=== PATIENT | male | born 1950 | race Caucasian/White ===

== ENCOUNTER 2021-01-26 13:20 | Emergency (ER) | payer OTHER, MEDICARE ==
[2021-01-26 13:42] VITALS: BP 160/97; PULSE 79; RESP 18; TEMP 98.3
--- NOTE | 2021-01-26 13:42 | ED ---
Extremity Problem HPI - General Source: patient, RN notes reviewed Mode of arrival: ambulatory Limitations: no limitations <Max Lomas - Last Filed: 01/26/21 13:40> <Zoran Santiago - Last Filed: 01/26/21 15:51> - General Stated complaint: Rt Shoulder Pain Time Seen by Provider: 01/26/21 13:37 - History of Present Illness Initial comments: This is a 70-year-old male presents emergency Department with chief complaint of right shoulder pain. Patient states 2 days ago he was stepping off a step onto concrete block states that he fell onto his right shoulder. Patient states he's had pain and decreased range of motion. Patient denies any head injury no loss conscious denies any neck pain no other complaints. Denies any blood thinners. (Max Lomas) - Related Data Allergies Allergy/AdvReac Type Severity Reaction Status Date / Time No Known Allergies Allergy Verified 01/26/21 13:42 Review of Systems ROS Other: All systems not noted in ROS Statement are negative. <Max Lomas - Last Filed: 01/26/21 13:40> ROS Other: All systems not noted in ROS Statement are negative. <Zoran Santiago - Last Filed: 01/26/21 15:51> ROS Statement: Those systems with pertinent positive or pertinent negative responses have been documented in the HPI. General Exam General appearance: alert, in no apparent distress Head exam: Present: atraumatic, normocephalic, normal inspection Neck exam: Present: normal inspection, full ROM. Absent: tenderness, meningismus, lymphadenopathy Respiratory exam: Present: normal lung sounds bilaterally. Absent: respiratory distress, wheezes, rales, rhonchi, stridor Cardiovascular Exam: Present: regular rate, normal rhythm, normal heart sounds. Absent: systolic murmur, diastolic murmur, rubs, gallop, clicks Extremities exam: Present: other (Right shoulder decreased range of motion, minimal tenderness with palpation radial pulse palpable) <Max Lomas - Last Filed: 01/26/21 13:40> Eye exam: Present: normal appearance (glasses), PERRL, EOMI. Absent: scleral icterus, conjunctival injection, periorbital swelling GI/Abdominal exam: Present: soft, normal bowel sounds. Absent: distended, tenderness, guarding, rebound, rigid Extremities exam: Absent: full ROM (pain with external rotation, hyperextension) <Zoran Santiago - Last Filed: 01/26/21 15:51> Course Vital Signs 01/26/21 13:40 Temperature 98.3 F Pulse Rate 79 Respiratory 18 Rate Blood Pressure 160/97 O2 Sat by Pulse 96 Oximetry Medical Decision Making <Zoran Santiago - Last Filed: 01/26/21 15:51> - Medical Decision Making Discussed with , x-ray negative for fracture and dislocation, humerus negative for x-ray. No effusion noted. Patient with pain with adduction to left shoulder and hyperextension, will splint and have patient follow-up with orthopedics. Patient declines pain medication states uses homeopathic medications and CBD oil for pain. (Zoran Santiago) Disposition <Max Lomas - Last Filed: 01/26/21 13:40> Is patient prescribed a controlled substance at d/c from ED?: No Time of Disposition: 15:50 <Zoran Santiago - Last Filed: 01/26/21 15:51> Clinical Impression: Right shoulder injury Disposition: HOME SELF-CARE Condition: Good Instructions (If sedation given, give patient instructions): Fall Prevention for Older Adults (ED), Shoulder Dislocation (ED) Additional Instructions: Wear sling until seen by orthopedics. Return if numbness or increased pain. Referrals: None,Stated [REFERRING] - 1-2 days Kameron Kwon MD [STAFF PHYSICIAN] - 1-2 days
--- NOTE | 2021-01-26 15:25 | XR ---
EXAMINATION TYPE: XR humerus RT DATE OF EXAM: 01/26/2021 COMPARISON: NONE HISTORY: Pain TECHNIQUE: 2 views submitted. FINDINGS: The osseous structures are intact and the joint spaces are preserved. Use osteopenia. Arthropathy of the AC joint. IMPRESSION: 1. No acute fracture or dislocation. 2. Arthropathy AC joint. 3. Diffuse osteopenia.
--- NOTE | 2021-01-26 15:26 | XR ---
EXAMINATION TYPE: XR shoulder complete RT DATE OF EXAM: 01/26/2021 COMPARISON: NONE HISTORY: Pain TECHNIQUE: Three views are submitted. FINDINGS: The osseous structures are intact. There is no acute fracture or dislocation. AC joint arthropathy n oted. Diffuse osteopenia. IMPRESSION: 1. AC joint arthropathy.
== END 2021-01-26 16:10 | disposition home or self-care (01) ==
LOC: EC 13:20
DX: S49.91XA Unspecified injury of right shoulder and upper arm, initial encounter (principal); W19.XXXA Unspecified fall, initial encounter
CPT/HCPCS: 99283

== ENCOUNTER 2021-10-04 12:56 | Inpatient (IN) | payer OTHER, MEDICARE ==
[2021-10-04] MEDS ORDERED: SODIUM CHLORIDE 0.9% 1,000 ML IV STA (13:01)
[2021-10-04] MEDS ORDERED: DEXAMETHASONE SOD PHOSPHATE 10 MG/ML 1 ML VIAL IVP STA (13:04)
--- NOTE | 2021-10-04 13:21 | ED ---
SOB HPI - General Chief Complaint: Shortness of Breath Stated Complaint: Diff Breathing Time Seen by Provider: 10/04/21 12:58 Source: patient Mode of arrival: ambulatory Limitations: no limitations - History of Present Illness Initial Comments: Patient presents with shortness of breath. His symptoms are worse with exertion. He has no chest pain or pressure or tightness. He has no nausea or vomiting. He has a cough. He has no lightheadedness or dizziness. He wasn't doing this began. His symptoms have gotten worse for the last 4 days. He has n o pain or swelling in the arms or legs. He doesn't feel like he has palpitations. He hasn't traveled anywhere. - Related Data Home Medications Medication Instructions Recorded Confirmed No Known Home Medications 10/04/21 10/04/21 Allergies Allergy/AdvReac Type Severity Reaction Status Date / Time No Known Allergies Allergy Verified 10/04/21 14:47 Review of Systems ROS Statement: Those systems with pertinent positive or pertinent negative responses have been documented in the HPI. ROS Other: All systems not noted in ROS Statement are negative. Past Medical History Past Medical History: No Reported History History of Any Multi-Drug Resistant Organisms: None Reported Past Surgical History: No Surgical Hx Reported, Tonsillectomy Past Psychological History: No Psychological Hx Reported Smoking Status: Current every day smoker Past Alcohol Use History: Occasional Past Drug Use History: None Reported General Exam Limitations: no limitations General appearance: alert, in no apparent distress Head exam: Present: atraumatic, normocephalic, normal inspection Eye exam: Present: normal appearance, PERRL, EOMI. Absent: scleral icterus, conjunctival injection, periorbital swelling ENT exam: Present: normal exam, mucous membranes moist Neck exam: Present: normal inspection. Absent: tenderness, meningismus, lymphadenopathy Respiratory exam: Present: respiratory distress. Absent: wheezes, rales, rhonchi, stridor Cardiovascular Exam: Present: regular rate, normal rhythm, normal heart sounds. Absent: systolic murmur, diastolic murmur, rubs, gallop, clicks GI/Abdominal exam: Present: soft, normal bowel sounds. Absent: distended, tenderness, guarding, rebound, rigid Extremities exam: Present: normal inspection, full ROM, normal capillary refill. Absent: tenderness, pedal edema, joint swelling, calf tenderness Back exam: Present: normal inspection Neurological exam: Present: alert, oriented X3, CN II-XII intact Psychiatric exam: Present: normal affect, normal mood Skin exam: Present: warm, dry, intact, normal color. Absent: rash Course Vital Signs 10/04/21 10/04/21 10/04/21 13:04 13:36 14:12 Temperature 101.7 F H Pulse Rate 110 H 122 H 111 H Respiratory 32 H 28 H 22 Rate Blood Pressure 115/73 106/68 O2 Sat by Pulse 85 L 81 L 93 L Oximetry Medical Decision Making - Medical Decision Making Patient presents with shortness of breath. He is very hypoxic. He is Covid positive. He has an elevated troponin and d-dimer. I ordered IV heparin. I will consult cardiology. Patient will be admitted to the hospital. - Lab Data Result diagrams: 10/04/21 13:15 10/04/21 13:15 Lab Results 10/04/21 10/04/21 10/04/21 Range/Units 13:15 13:15 13:15 WBC 11.3 H (3.8-10.6) k/uL RBC 5.13 (4.30-5.90) m/uL Hgb 15.8 (13.0-17.5) gm/dL Hct 45.9 (39.0-53.0) % MCV 89.3 (80.0-100.0) fL MCH 30.9 (25.0-35.0) pg MCHC 34.5 (31.0-37.0) g/dL RDW 14.1 (11.5-15.5) % Plt Count 136 L (150-450) k/uL MPV 8.3 Neutrophils % 92 % Lymphocytes % 3 % Monocytes % 3 % Eosinophils % 0 % Basophils % 1 % Neutrophils # 10.3 H (1.3-7.7) k/uL Lymphocytes # 0.3 L (1.0-4.8) k/uL Monocytes # 0.4 (0-1.0) k/uL Eosinophils # 0.0 (0-0.7) k/uL Basophils # 0.1 (0-0.2) k/uL PT 10.8 (9.0-12.0) sec INR 1.0 (<1.2) APTT 26.6 (22.0-30.0) sec D-Dimer 3.98 H (<0.60) mg/L FEU Sodium 136 L (137-145) mmol/L Potassium 4.0 (3.5-5.1) mmol/L Chloride 104 (98-107) mmol/L Carbon Dioxide 19 L (22-30) mmol/L Anion Gap 13 mmol/L BUN 39 H (9-20) mg/dL Creatinine 1.83 H (0.66-1.25) mg/dL Est GFR (CKD-EPI)AfAm 41 (>60 ml/min/1.73 sqM) Est GFR (CKD-EPI)NonAf 36 (>60 ml/min/1.73 sqM) Glucose 133 H (74-99) mg/dL Plasma Lactic Acid Hector (0.7-2.0) mmol/L Calcium 8.1 L (8.4-10.2) mg/dL Magnesium 2.1 (1.6-2.3) mg/dL Total Bilirubin 0.9 (0.2-1.3) mg/dL AST 140 H (17-59) U/L ALT 54 H (4-49) U/L Alkaline Phosphatase 49 (38-126) U/L Troponin I (0.000-0.034) ng/mL Total Protein 7.0 (6.3-8.2) g/dL Albumin 3.4 L (3.5-5.0) g/dL Influenza Type A (PCR) (Not Detectd) Influenza Type B (PCR) (Not Detectd) RSV (PCR) (Not Detectd) SARS-CoV-2 (PCR) (Not Detectd) 10/04/21 10/04/21 10/04/21 Range/Units 13:15 13:15 13:24 WBC (3.8-10.6) k/uL RBC (4.30-5.90) m/uL Hgb (13.0-17.5) gm/dL Hct (39.0-53.0) % MCV (80.0-100.0) fL MCH (25.0-35.0) pg MCHC (31.0-37.0) g/dL RDW (11.5-15.5) % Plt Count (150-450) k/uL MPV Neutrophils % % Lymphocytes % % Monocytes % % Eosinophils % % Basophils % % Neutrophils # (1.3-7.7) k/uL Lymphocytes # (1.0-4.8) k/uL Monocytes # (0-1.0) k/uL Eosinophils # (0-0.7) k/uL Basophils # (0-0.2) k/uL PT (9.0-12.0) sec INR (<1.2) APTT (22.0-30.0) sec D-Dimer (<0.60) mg/L FEU Sodium (137-145) mmol/L Potassium (3.5-5.1) mmol/L Chloride (98-107) mmol/L Carbon Dioxide (22-30) mmol/L Anion Gap mmol/L BUN (9-20) mg/dL Creatinine (0.66-1.25) mg/dL Est GFR (CKD-EPI)AfAm (>60 ml/min/1.73 sqM) Est GFR (CKD-EPI)NonAf (>60 ml/min/1.73 sqM) Glucose (74-99) mg/dL Plasma Lactic Acid Hector 4.0 H* (0.7-2.0) mmol/L Calcium (8.4-10.2) mg/dL Magnesium (1.6-2.3) mg/dL Total Bilirubin (0.2-1.3) mg/dL AST (17-59) U/L ALT (4-49) U/L Alkaline Phosphatase (38-126) U/L Troponin I 0.096 H* (0.000-0.034) ng/mL Total Protein (6.3-8.2) g/dL Albumin (3.5-5.0) g/dL Influenza Type A (PCR) Not Detected (Not Detectd) Influenza Type B (PCR) Not Detected (Not Detectd) RSV (PCR) Not Detected (Not Detectd) SARS-CoV-2 (PCR) Detected A (Not Detectd) 10/04/21 13:26 Twelve-lead EKG shows ventricular rate 129 bpm, normal NV interval, normal QRS complexes, no ST elevation or depression, interpreted by me as sinus tachycardia. Critical Care Time Critical Care Time: Yes Total Critical Care Time: 35 Disposition Clinical Impression: COVID-19, NSTEMI (non-ST elevated myocardial infarction) Disposition: ADMITTED IP TO THIS HOSP Condition: Serious Is patient prescribed a controlled substance at d/c from ED?: No Referrals: [facility],Clinic [Primary Care Provider] - 1-2 days
[2021-10-04] MEDS ORDERED: ACETAMINOPHEN TAB 500 MG TAB PO STA (13:23)
[2021-10-04 13:44] LABS: Basophils # (A) 0.1 k/uL (0-0.2); Basophils % (A) 1 %; Eosinophils % (A) 0 %; HCT 45.9 % (39.0-53.0); HGB 15.8 gm/dL (13.0-17.5); Lymphocytes # (A) 0.3 k/uL (1.0-4.8); Lymphocytes % (A) 3 %; MCH 30.9 pg (25.0-35.0); MCHC 34.5 g/dL (31.0-37.0); MCV 89.3 fL (80.0-100.0); Mean Platelet Volume 8.3; Monocytes # (A) 0.4 k/uL (0-1.0); Monocytes % (A) 3 %; Neutrophils # (A) 10.3 k/uL (1.3-7.7); Neutrophils % (A) 92 %; Platelet Count 136 k/uL (150-450); RBC 5.13 m/uL (4.30-5.90); RDW 14.1 % (11.5-15.5); WBC 11.3 k/uL (3.8-10.6)
--- NOTE | 2021-10-04 13:59 | XR ---
EXAMINATION TYPE: XR chest 1V portable DATE OF EXAM: 10/04/2021 HISTORY: Shortness of breath. COMPARISON: 03/05/2013 TECHNIQUE: Single view of the chest is submitted. FINDINGS: Demonstrated are scattered senescent parenchymal change. There are coarse and groundglass infiltrates throughout both lung prado right greater than left comp atible with Covid 19 pneumonia. The heart is stable. Hilar and mediastinal structures are within normal limits. Degenerative changes are seen of the dorsal spine. IMPRESSION: 1. There are coarse and groundglass infiltrates throughout both lung prado right greater than left compatible with Covid 19 pneumonia.
[2021-10-04 14:00] LABS: Albumin 3.4 g/dL (3.5-5.0); Calcium 8.1 mg/dL (8.4-10.2); Magnesium 2.1 mg/dL (1.6-2.3); Total Bilirubin 0.9 mg/dL (0.2-1.3)
[2021-10-04 14:12] LABS: Partial Thromboplastin Time 26.6 sec (22.0-30.0); Prothrombin Time 10.8 sec (9.0-12.0)
[2021-10-04] MEDS ORDERED: HEPARIN SODIUM 1,000 UN/ML (10ML VL) IV ONE (15:12)
[2021-10-04] MEDS ORDERED: NALOXONE 0.4 MG/ML 1 ML VIAL IV PRN (15:15)
[2021-10-04] MEDS ORDERED: DOCUSATE 100 MG CAP PO PRN (15:15)
[2021-10-04] MEDS ORDERED: ACETAMINOPHEN TAB 325 MG TAB PO PRN (15:15)
[2021-10-04] MEDS ORDERED: CALCIUM CARBONATE 500 MG CHEWABLE PO PRN (15:15)
[2021-10-04] MEDS ORDERED: ONDANSETRON 4 MG/2 ML VIAL IVP PRN (15:15)
[2021-10-04] MEDS ORDERED: HEPARIN SOD,PORK IN 0.45% NACL 25,000 UNIT in 0.45% NACL 1 250ML.BAG IV SCH (15:15)
[2021-10-04] MEDS ORDERED: TEMAZEPAM 15 MG CAP PO PRN (15:15)
[2021-10-04] MEDS ORDERED: BENZOCAINE/MENTHOL LOZENG 1 EACH LOZENGE MUCOUS MEM PRN (15:15)
[2021-10-05] MEDS: ASPIRIN 81 MG PO SCH (08:43)
[2021-10-05] MEDS: METOPROLOL TARTRATE 12.5 MG TAB PO SCH ×2 (08:43→20:05)
[2021-10-05 11:17] LABS: Basophils # (A) 0.1 k/uL (0-0.2); Basophils % (A) 0 %; Eosinophils % (A) 0 %; HCT 45.1 % (39.0-53.0); HGB 15.6 gm/dL (13.0-17.5); Lymphocytes # (A) 1.1 k/uL (1.0-4.8); Lymphocytes % (A) 8 %; MCH 30.7 pg (25.0-35.0); MCHC 34.5 g/dL (31.0-37.0); Mean Platelet Volume 8.7; Monocytes # (A) 0.3 k/uL (0-1.0); Monocytes % (A) 2 %; Neutrophils % (A) 88 %; Platelet Count 161 k/uL (150-450); RBC 5.08 m/uL (4.30-5.90); RDW 14.2 % (11.5-15.5); WBC 13.6 k/uL (3.8-10.6)
[2021-10-05 11:30] VITALS: BMI 16.7
[2021-10-05 11:45] LABS: Potassium 4.2 mmol/L (3.5-5.1)
--- NOTE | 2021-10-05 11:56 | P.CRDCN ---
History of Present Illness Consult date: 10/05/21 History of present illness: CHIEF COMPLAINT: Abnormal troponins HISTORY OF PRESENT ILLNESS: This is a 71-year-old male with a past medical history significant for nicotine dependence. 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 We have been asked to see the patient in consultation for abnormal troponins. Patient presented to the hospital with a chief complaint of shortness of breath. The patient was found to be positive for Covid. Patient did not receive his vaccination. Patient was hypoxic upon presentation to the hospital with an oxygen saturation in the 80s. Patient was found to have abnormal troponins of 0.096. 0.197. 0.177. He was started on IV heparin. The patient was initially on a nonrebreather mask. He is currently on a BiPAP. The patient has no complaints of chest pain or pressure. Blood pressure 116/73. DIAGNOSTICS: EKG reveals sinus mechanism with nonspecific ST-T wave changes Chest xray course and groundglass infiltrates throughout both lung prado right greater than left compatible with COVID-19 pneumonia. Laboratory data: WBC 13.6. Hemoglobin 15.6. Platelet count 161. D-dimer 3.98. Sodium 136. Potassium 4.0. BUN 39. Creatinine 1.83. Lactic acid 1.1. BNP 999. Troponin 0.096. 0.197. 0.177. Current home cardiac medications include none REVIEW OF SYSTEMS: Thorough review of systems not completed secondary to limited evaluat ion/examination due to Covid19 PHYSICAL EXAM: Thorough physical exam not completed secondary to limited evaluation/examination due to Covid19 ASSESSMENT: Shortness of breath Covid 19 Acute hypoxic respiratory failure Abnormal troponins, not suggestive of acute coronary syndrome, likely secondary to type II [place] secondary to oxygen supply and demand mismatch due to significant hypoxia Acute kidney injury, baseline unknown, creatinine 1.83 on admission Elevated d-dimer PLAN: Begin aspirin 81 mg daily and metoprolol 12.5 mg twice a day Obtain lipid panel Discontinue IV heparin Will defer workup workup of elevated d-dimer to internal medicine if necessary Obtain 2D echo to assess cardiac structure and function Further recommendations pending patient course Nurse practitioner note has been reviewed by physician. Signing provider agrees with the documented findings, assessment, and plan of care. Past Medical History Past Medical History: No Reported History History of Any Multi-Drug Resistant Organisms: None Reported Past Surgical History: Tonsillectomy Past Anesthesia/Blood Transfusion Reactions: No Reported Reaction Past Psychological History: No Psychological Hx Reported Smoking Status: Current every day smoker Past Alcohol Use History: Occasional Past Drug Use History: None Reported Medications and Allergies Home Medications Medication Instructions Recorded Confirmed Type No Known Home Medications 10/04/21 10/04/21 History Allergies Allergy/AdvReac Type Severity Reaction Status Date / Time No Known Allergies Allergy Verified 10/04/21 14:47 Physical Exam Vitals: Vital Signs Temp Pulse Pulse Resp BP BP Pulse Ox 10/05/21 08:00 97.7 F 61 20 116/73 90 L 10/05/21 04:00 62 24 101/65 92 L 10/05/21 02:00 70 22 10/05/21 00:00 98.4 F 70 26 H 118/76 92 L 10/04/21 20:39 97.4 F L 68 31 H 114/81 90 L 10/04/21 20:00 68 10/04/21 17:27 97.7 F 74 18 107/83 95 10/04/21 14:12 111 H 22 93 L 10/04/21 13:36 122 H 28 H 106/68 81 L 10/04/21 13:04 101.7 F H 110 H 32 H 115/73 85 L Intake and Output 10/04/21 10/05/21 10/05/21 22:59 06:59 14:59 Intake Total 121.082 Balance 121.082 Intake: Intake, IV Titration 121.082 Amount Heparin Sod,Pork in 0.45% 121.082 NaCl 25,000 unit In 0.45 % NaCl 1 250ml.bag @ 11.8 UNITS/KG/HR 10.004 mls/ hr IV .Q24H [facility] Rx#: [id number] Other: Voiding Method Urinal Urinal # Voids 1 # Bowel Movements 1 Weight 51.5 kg Results 10/05/21 11:02 10/04/21 13:15 Cardiac Enzymes 10/04/21 10/04/21 10/04/21 Range/Units 13:15 13:15 15:26 AST 140 H (17-59) U/L Troponin I 0.096 H* 0.197 H* (0.000-0.034) ng/mL 10/04/21 Range/Units 19:31 AST (17-59) U/L Troponin I 0.177 H* (0.000-0.034) ng/mL Coagulation 10/04/21 10/04/21 10/05/21 Range/Units 13:15 21:54 05:42 PT 10.8 (9.0-12.0) sec APTT 26.6 76.2 H 80.5 H (22.0-30.0) sec CBC 10/04/21 Range/Units 13:15 WBC 11.3 H (3.8-10.6) k/uL RBC 5.13 (4.30-5.90) m/uL Hgb 15.8 (13.0-17.5) gm/dL Hct 45.9 (39.0-53.0) % Plt Count 136 L (150-450) k/uL Comprehensive Metabolic Panel 10/04/21 Range/Units 13:15 Sodium 136 L (137-145) mmol/L Potassium 4.0 (3.5-5.1) mmol/L Chloride 104 (98-107) mmol/L Carbon Dioxide 19 L (22-30) mmol/L BUN 39 H (9-20) mg/dL Creatinine 1.83 H (0.66-1.25) mg/dL Glucose 133 H (74-99) mg/dL Calcium 8.1 L (8.4-10.2) mg/dL AST 140 H (17-59) U/L ALT 54 H (4-49) U/L Alkaline Phosphatase 49 (38-126) U/L Total Protein 7.0 (6.3-8.2) g/dL Albumin 3.4 L (3.5-5.0) g/dL Current Medications Generic Name Dose Route Start Last Admin Trade Name Freq PRN Reason Stop Dose Admin Acetaminophen 650 mg 10/04/21 15:15 Acetaminophen Tab 325 Mg Tab PO Q6HR PRN Mild Pain or Fever > 100.5 Ascorbic Acid 500 mg 10/05/21 11:00 Ascorbic Acid 500 Mg Tab PO DAILY TALITA Aspirin 81 mg 10/05/21 09:00 10/05/21 08:43 Aspirin 81 Mg PO 81 mg DAILY TALITA Administration Benzocaine/Menthol 1 each 10/04/21 15:15 Benzocaine/Menthol Lozeng 1 Each Lozenge MUCOUS MEM Q4HR PRN Sore Throat Calcium Carbonate/Glycine 1,000 mg 10/04/21 15:15 Calcium Carbonate 500 Mg Chewable PO Q4HR PRN Dyspepsia Cholecalciferol 25 mcg 10/05/21 11:00 Cholecalciferol 25 Mcg (1000 Iu) Tablet PO DAILY [facility] Dexamethasone Sodium Phosphate 6 mg 10/05/21 11:00 Dexamethasone Sod Phosphate 10 Mg/Ml 1 Ml Vial IVP DAILY TALITA Docusate Sodium 100 mg 10/04/21 15:15 Docusate 100 Mg Cap PO BID PRN Constipation Metoprolol Tartrate 12.5 mg 10/05/21 09:00 10/05/21 08:43 Metoprolol Tartrate 12.5 Mg Tab PO 12.5 mg BID TALITA Administration Naloxone HCl 0.2 mg 10/04/21 15:15 Naloxone 0.4 Mg/Ml 1 Ml Vial IV Q2M PRN Opioid Reversal Ondansetron HCl 4 mg 10/04/21 15:15 Ondansetron 4 Mg/2 Ml Vial IVP Q8HR PRN Nausea And Vomiting Temazepam 15 mg 10/04/21 15:15 Temazepam 15 Mg Cap PO HS PRN Insomnia Zinc Sulfate 220 mg 10/05/21 11:00 Zinc Sulfate 220 Mg Cap PO DAILY [facility] Intake and Output 10/04/21 10/05/21 10/05/21 22:59 06:59 14:59 Intake Total 121.082 Balance 121.082 Intake: Intake, IV Titration 121.082 Amount Heparin Sod,Pork in 0.45% 121.082 NaCl 25,000 unit In 0.45 % NaCl 1 250ml.bag @ 11.8 UNITS/KG/HR 10.004 mls/ hr IV .Q24H [facility] Rx#: [id number] Other: Voiding Method Urinal Urinal # Voids 1 # Bowel Movements 1 Weight 51.5 kg 10/04/21 13:15 10/04/21 13:15
[2021-10-05] MEDS: ASCORBIC ACID 500 MG TAB PO SCH (12:03)
[2021-10-05] MEDS: DEXAMETHASONE SOD PHOSPHATE 10 MG/ML 1 ML VIAL IVP SCH (12:03)
[2021-10-05] MEDS: CHOLECALCIFEROL 25 MCG (1000 IU) TABLET PO SCH (12:03)
[2021-10-05] MEDS: ZINC SULFATE 220 MG CAP PO SCH (12:03)
--- NOTE | 2021-10-05 12:22 | ECHOF ---
Referral Reason:Abnormal troponins, + covid MEASUREMENTS -------- HEIGHT: 175.3 cm WEIGHT: 51.3 kg BP: 101/65 RVIDd: 3.2 cm (< 3.3) IVSd: 1.5 cm (0.6 - 1.1) LVIDd: 3.5 cm (3.9 - 5.3) LVPWd: 1.7 cm (0.6 - 1.1) IVSs: 1.6 cm LVIDs: 2.5 cm LVPWs: 2.2 cm LAESV Index (A-L): 33.85 ml/m Ao Diam: 3.6 cm (2.0 - 3.7) AV Cusp: 2.1 cm (1.5 - 2.6) MV EXCURSION: 24.054 mm (> 18.000) MV EF SLOPE: 101 mm/s (70 - 150) EPSS: 0.2 cm MV E Goyo: 0.79 m/s MV DecT: 197 ms MV A Goyo: 0.70 m/s MV E/A Ratio: 1.12 RAP: 20.00 mmHg RVSP: 45.11 mmHg FINDINGS -------- Sinus rhythm. This was a technically adequate study. The left ventricular size is normal. There is moderate concentric left ventricular hypertrophy. O verall left ventricular systolic function is normal with, an EF between 55 - 60 %. The diastolic fi lling pattern is normal for the age of the patient 12.44. The right ventricle is normal in size. LA is midly dilated 29-33ml/m2. The right atrium was not well visualized. Interatrial and interventricular septum intact. Trace amount of aortic regurgitation. There is no evidence of aortic stenosis. Mild mitral regurgitation is present. [id number] tricuspid regurgitation present. There is mild to moderate pulmonary hypertension. The right ventricular systolic pressure, as measured by Doppler, is 45.11mmHg. There is no pulmonic regurgitation present. The aortic root size is normal. The inferior vena cava is dilated with poor inspiratory collapse which is consistent with estimated r ight atrial pressure of 20 mmHg. Echo free space represents a pericardial fat pad. There is no pericardial effusion. CONCLUSIONS -------- 1. The left ventricular size is normal. 2. There is moderate concentric left ventricular hypertrophy. 3. Overall left ventricular systolic function is normal with, an EF between 55 - 60 %. 4. The diastolic filling pattern is normal for the age of the patient 12.44 5. LA is midly dilated 29-33ml/m2. 6. Trace amount of aortic regurgitation. 7. Mild mitral regurgitation is present. 8. [id number] tricuspid regurgitation present. 9. There is mild to moderate pulmonary hypertension. 10. The right ventricular systolic pressure, as measured by Doppler, is 45.11mmHg. 11. The inferior vena cava is dilated with poor inspiratory collapse which is consistent with estimat ed right atrial pressure of 20 mmHg. 12. Echo free space represents a pericardial fat pad. 13. There is no pericardial effusion. CHORUS DANCER: Frannie Carney RDCS
--- NOTE | 2021-10-05 13:02 | P.CNPUL ---
History of Present Illness Consult date: 10/05/21 Requesting physician: Saira Martinez Reason for consult: dyspnea, hypoxemia, abnormal CXR/CT Chief complaint: shortness of breath, cough, confusion History of present illness: this is a 71-year-old male patient with a history of chronic tobacco dependence otherwise no significant past medical history. Approximately 1 week ago he developed increasing shortness of breath, cough and congestion. He admitted to some confusion, weakness and diarrhea. He is not vaccinated against the COVID-19 virus and is found to be positive now. the x-ray does reveal coursing groundglass infiltrates throughout bilateral lung prado compatible with COVID- 19 pneumonia. He is currently requiring BiPAP / in the 100% FiO2 to maintain O2 saturation at 90%. white count 13.6. Hemoglobin 15.6. Platelet count 161. D-dimer 3.98. Sodium 138. Potassium 4.2. Bicarb 19. Creatinine 2.34. Glucose 118. LDH 2013. ProBNP 999. Troponins 0.096, 0.197, 0.177. proBNP 999. He was initiated on a heparin drip. Echocardiogram revealed preserved left ventricle systolic function with ejection fraction 55-60%. Moderate pulmonary hypertension. No significant valvular abnormalities. He was started on Decadron and a vitamin supplements. Review of Systems REVIEW OF SYSTEMS: CONSTITUTIONAL: Denies any recent significant weight loss or weight gain. EYES: Denies change in vision. EARS, NOSE, MOUTH, THROAT: Denies headaches, denies sore throat. CARDIOVASCULAR: Denies chest pain, palpitations or syncopal episodes. RESPIRATORY: Positive for shortness of breath, cough, congestion no hemoptysis. GASTROINTESTINAL: Positive for diarrhea GENITOURINARY: Denies hematuria, denies infections. MUSKULOSKELETAL: Denies pain, denies swelling. INTEGUMENTARY: Denies rash, denies eczema. NEUROLOGICAL: Positive for confusions, no recent seizure activity. PSYCHIATRIC: Denies anxiety, denies depression. HEMATOLOGIC/LYMPHATIC: Denies anemia, denies enlarged lymph nodes. Past Medical History Past Medical History: No Reported History History of Any Multi-Drug Resistant Organisms: None Reported Past Surgical History: Tonsillectomy Past Anesthesia/Blood Transfusion Reactions: No Reported Reaction Past Psychological History: No Psychological Hx Reported Smoking Status: Current every day smoker Past Alcohol Use History: Occasional Past Drug Use History: None Reported Medications and Allergies Home Medications Medication Instructions Recorded Confirmed Type No Known Home Medications 10/04/21 10/04/21 History Allergies Allergy/AdvReac Type Severity Reaction Status Date / Time No Known Allergies Allergy Verified 10/04/21 14:47 Physical Exam Vitals: Vital Signs Temp Pulse Pulse Resp BP BP Pulse Ox 10/05/21 08:00 97.7 F 61 20 116/73 90 L 10/05/21 04:00 62 24 101/65 92 L 10/05/21 02:00 70 22 10/05/21 00:00 98.4 F 70 26 H 118/76 92 L 10/04/21 20:39 97.4 F L 68 31 H 114/81 90 L 10/04/21 20:00 68 10/04/21 17:27 97.7 F 74 18 107/83 95 10/04/21 14:12 111 H 22 93 L 10/04/21 13:36 122 H 28 H 106/68 81 L 10/04/21 13:04 101.7 F H 110 H 32 H 115/73 85 L Intake and Output 10/04/21 10/05/21 10/05/21 22:59 06:59 14:59 Intake Total 121.082 Balance 121.082 Intake: Intake, IV Titration 121.082 Amount Heparin Sod,Pork in 0.45% 121.082 NaCl 25,000 unit In 0.45 % NaCl 1 250ml.bag @ 11.8 UNITS/KG/HR 10.004 mls/ hr IV .Q24H [facility] Rx#: [id number] Other: Voiding Method Urinal Urinal # Voids 1 # Bowel Movements 1 Weight 51.5 kg 51.5 kg GENERAL EXAM: Alert, pleasant 71-year-old gentleman, on BiPAP 12/6 and 100% FiO2 with O2 saturation 90%, and mild respiratory distress. HEAD: Normocephalic. EYES: Normal reaction of pupils, equal size. NOSE: Clear with pink turbinates. THROAT: No erythema or exudates. NECK: No masses, no JVD. CHEST: No chest wall deformity. LUNGS: Equal air entry with coarse crackles in the bilateral bases. CVS: S1 and S2 normal with no audible murmur, regular rhythm. ABDOMEN: No hepatosplenomegaly, normal bowel sounds, no guarding or rigidity. SPINE: No scoliosis or deformity SKIN: No rashes CENTRAL NERVOUS SYSTEM: No focal deficits, tone is normal in all 4 extremities. EXTREMITIES: There is no peripheral edema. No clubbing, no cyanosis. Peripheral pulses are intact. Results - Laboratory Findings CBC and BMP: 10/05/21 11:02 10/05/21 11:02 PT/INR, D-dimer PT 10.8 sec (9.0-12.0) 10/04/21 13:15 INR 1.0 (<1.2) 10/04/21 13:15 D-Dimer 3.98 mg/L FEU (<0.60) H 10/04/21 13:15 Abnormal lab findings: Abnormal Labs 10/04/21 10/04/21 10/04/21 13:15 13:15 13:15 WBC 11.3 H Plt Count 136 L Neutrophils # 10.3 H Lymphocytes # 0.3 L APTT D-Dimer 3.98 H Sodium 136 L Chloride Carbon Dioxide 19 L BUN 39 H Creatinine 1.83 H Glucose 133 H Plasma Lactic Acid Hector Calcium 8.1 L AST 140 H ALT 54 H Lactate Dehydrogenase Troponin I Albumin 3.4 L SARS-CoV-2 (PCR) 10/04/21 10/04/21 10/04/21 13:15 13:15 13:24 WBC Plt Count Neutrophils # Lymphocytes # APTT D-Dimer Sodium Chloride Carbon Dioxide BUN Creatinine Glucose Plasma Lactic Acid Hector 4.0 H* Calcium AST ALT Lactate Dehydrogenase Troponin I 0.096 H* Albumin SARS-CoV-2 (PCR) Detected A 10/04/21 10/04/21 10/04/21 15:26 19:31 21:54 WBC Plt Count Neutrophils # Lymphocytes # APTT 76.2 H D-Dimer Sodium Chloride Carbon Dioxide BUN Creatinine Glucose Plasma Lactic Acid Hector Calcium AST ALT Lactate Dehydrogenase Troponin I 0.197 H* 0.177 H* Albumin SARS-CoV-2 (PCR) 10/05/21 10/05/21 10/05/21 05:42 11:02 11:02 WBC 13.6 H Plt Count Neutrophils # 12.0 H Lymphocytes # APTT 80.5 H 56.9 H D-Dimer Sodium Chloride Carbon Dioxide BUN Creatinine Glucose Plasma Lactic Acid Hector Calcium AST ALT Lactate Dehydrogenase Troponin I Albumin SARS-CoV-2 (PCR) 10/05/21 11:02 WBC Plt Count Neutrophils # Lymphocytes # APTT D-Dimer Sodium Chloride 109 H Carbon Dioxide 19 L BUN 58 H Creatinine 2.34 H Glucose 118 H Plasma Lactic Acid Hector Calcium 8.0 L AST ALT Lactate Dehydrogenase 2013 H Troponin I Albumin SARS-CoV-2 (PCR) - Diagnostic Findings Chest x-ray: image reviewed Assessment and Plan Assessment: 1 Acute hypoxemic respiratory failure secondary to acute COVID-19 pneumonia. Not vaccinated. Currently requiring BiPAP support 10/09 and 100% FiO2 to maintain O2 saturation at 90%. We will initiate Baricitinib 2 Elevated inflammatory markers secondary to above 3 Chronic tobacco dependence 4 Elevated troponins suspect secondary to an oxygen supply and demand mismatch, on a heparin drip Plan: The patient was seen and evaluated by Dr. Tavares Initiate Baricitinib, continue Decadron and vitamin supplements Heparin drip DC'd per cardiology Add Lovenox 40 mg daily Obtain Dopplers of the lower extremities Check pro calcitonin Titrate the FiO2 as tolerated Condition is guarded Follow-up chest x-ray, inflammatory markers in the a.m. We will continue to follow and make further recommendations based on his clinical status Time with Patient: Greater than 30
[2021-10-05 13:56] LABS: C Reactive Protein 20.8 mg/dL (<1.0)
--- NOTE | 2021-10-05 14:18 | US ---
EXAMINATION TYPE: US venous doppler duplex LE DATE OF EXAM: 10/05/2021 1:53 PM COMPARISON: NONE CLINICAL HISTORY: Elevated d-dimer, CoVID. elevated labs, no h/o dvt, on Heparin SIDE PERFORMED: Bilateral TECHNIQUE: The lower extremity deep venous system is examined utilizing real time linear array sonog baljit with graded compression, doppler sonography and color-flow sonography. VESSELS IMAGED: Common Femoral Vein Deep Femoral Vein Greater Saphenous Vein * Femoral Vein Popliteal Vein Small Saphenous Vein * Proximal Calf Veins (* superficial vessels) Right Leg: Negative for DVT Left Leg: Negative for DVT IMPRESSION: Grayscale, color doppler, spectral doppler imaging performed of the deep veins of the lo wer extremities. There is normal flow, compressibility, vascular waveforms.
[2021-10-05] MEDS: ENOXAPARIN 40 MG/0.4 ML SYRINGE SQ SCH (15:40)
[2021-10-05] MEDS: BARICITINIB 1 MG TABLET PO SCH (15:42)
[2021-10-05 16:09] LABS: Chol/HDL Ratio 2.16 Ratio; LDL Cholesterol,Calculated 25.7 mg/dL (0.0-131.0); VLDL Calculation 12.76 mg/dL (5.00-40.00)
[2021-10-05] MEDS: guaiFENesin 600 MG TABLET.ER PO SCH (17:18)
[2021-10-05 20:02] LABS: Glucose,Whole Blood 132 mg/dL (75-99)
--- NOTE | 2021-10-05 22:29 | P.HPIM ---
History of Present Illness H&P Date: 10/05/21 Chief Complaint: Shortness of breath. Patient is a 71-year-old male without significant past medical history presents to ER with complaints of shortness of breath cough and congestion. Patient has been having exertional dyspnea as well. No complaints of chest pain. No nausea vomiting. He has been having symptoms for the past 4 days. Denies any recent travel or sick contacts. On admission patient was tested positive for COVID-19 infection. Chest x-ray showed there are coarsened groundglass infiltrates throughout both lung prado right greater than left compatible with COVID-19 pneumonia. EKG showed sinus tachycardia with premature supraventricular complexes. Laboratory data showed WBC 11.3 hemoglobin 15.8 and platelets 136 D-dimer is 3.98 Sodium 136 potassium 4.0 chloride 104 BUN 39 and creatinine 1.83 Lactic acid 4.0 AST 140 ALT 54 Troponin 0 0.096, 0.197 and 0.177 COVID-19 PCR positive. On admission patient was febrile with T-max 101.7 heart rate 110 respiration 32 and pulse ox 85% on 15 L oxygen via nonrebreather. Patient did require BiPAP overnight. Review of Systems Constitutional: Patient does have fever and chills at home. Generalized weakness and malaise. Abdomen: Patient denied nausea vomiting and diarrhea and abdominal pain. Cardiovascular: Patient denies any chest pain or short of breath no palpitations. Respiratory: Patient does have cough without sputum production. Shortness of breath. Neurologic: Patient denied any numbness or tingling headache. Musculoskeletal: Patient denies any complaints of joint swelling or deformity. Skin: Negative Psychiatric: Negative Endocrine: No heat or cold intolerance. No recent weight gain. Genitourinary: No dysuria or hematuria. All other 14 point ROS negative except the above Past Medical History Past Medical History: No Reported History History of Any Multi-Drug Resistant Organisms: None Reported Past Surgical History: Tonsillectomy Past Anesthesia/Blood Transfusion Reactions: No Reported Reaction Past Psychological History: No Psychological Hx Reported Smoking Status: Current every day smoker Past Alcohol Use History: Occasional Past Drug Use History: None Reported Medications and Allergies Home Medications Medication Instructions Recorded Confirmed Type No Known Home Medications 10/04/21 10/04/21 History Allergies Allergy/AdvReac Type Severity Reaction Status Date / Time No Known Allergies Allergy Verified 10/04/21 14:47 Physical Exam Vitals: Vital Signs Temp Pulse Pulse Resp BP BP Pulse Ox 10/05/21 08:00 97.7 F 61 20 116/73 90 L 10/05/21 04:00 62 24 101/65 92 L 10/05/21 02:00 70 22 10/05/21 00:00 98.4 F 70 26 H 118/76 92 L 10/04/21 20:39 97.4 F L 68 31 H 114/81 90 L 10/04/21 20:00 68 10/04/21 17:27 97.7 F 74 18 107/83 95 10/04/21 14:12 111 H 22 93 L 10/04/21 13:36 122 H 28 H 106/68 81 L 10/04/21 13:04 101.7 F H 110 H 32 H 115/73 85 L Intake and Output 10/04/21 10/05/21 10/05/21 22:59 06:59 14:59 Intake Total 121.082 Balance 121.082 Intake: Intake, IV Titration 121.082 Amount Heparin Sod,Pork in 0.45% 121.082 NaCl 25,000 unit In 0.45 % NaCl 1 250ml.bag @ 11.8 UNITS/KG/HR 10.004 mls/ hr IV .Q24H [facility] Rx#: [id number] Other: Voiding Method Urinal Urinal # Voids 1 # Bowel Movements 1 Weight 51.5 kg PHYSICAL EXAMINATION: Patient is lying in the bed comfortably, no acute distress, awake alert and oriented.. HEENT: Normocephalic. Neck is supple. Pupils reactive. Nostrils clear. Oral cavity is moist. Neck reveals no JVD, carotid bruits, or thyromegaly. CHEST EXAMINATION: Trachea is central. Symmetrical expansion. Scattered coarse sounds. Nonlabored breathing. No wheezing.. CARDIAC: Normal S1, S2 with no gallops. No murmurs ABDOMEN: Soft. Bowel sounds normal. No organomegaly. No abdominal bruits. Extremities: reveal no edema. No clubbing or cyanosis Neurologically awake, alert, oriented x3 with well-coordinated movements. No focal deficits noted Skin: No rash or skin lesions. Psychiatric: Cooperative. Nonsuicidal Musculoskeletal: No joint swelling or deformity. Normal range of motion. Results CBC & Chem 7: 10/05/21 11:02 10/05/21 11:02 Labs: Abnormal Lab Results - Last 24 Hours (Table) 10/04/21 10/04/21 10/04/21 Range/Units 13:15 13:15 13:15 WBC 11.3 H (3.8-10.6) k/uL Plt Count 136 L (150-450) k/uL Neutrophils # 10.3 H (1.3-7.7) k/uL Lymphocytes # 0.3 L (1.0-4.8) k/uL APTT (22.0-30.0) sec D-Dimer 3.98 H (<0.60) mg/L FEU Sodium 136 L (137-145) mmol/L Carbon Dioxide 19 L (22-30) mmol/L BUN 39 H (9-20) mg/dL Creatinine 1.83 H (0.66-1.25) mg/dL Glucose 133 H (74-99) mg/dL Plasma Lactic Acid Hector (0.7-2.0) mmol/L Calcium 8.1 L (8.4-10.2) mg/dL AST 140 H (17-59) U/L ALT 54 H (4-49) U/L Troponin I (0.000-0.034) ng/mL Albumin 3.4 L (3.5-5.0) g/dL SARS-CoV-2 (PCR) (Not Detectd) 10/04/21 10/04/21 10/04/21 Range/Units 13:15 13:15 13:24 WBC (3.8-10.6) k/uL Plt Count (150-450) k/uL Neutrophils # (1.3-7.7) k/uL Lymphocytes # (1.0-4.8) k/uL APTT (22.0-30.0) sec D-Dimer (<0.60) mg/L FEU Sodium (137-145) mmol/L Carbon Dioxide (22-30) mmol/L BUN (9-20) mg/dL Creatinine (0.66-1.25) mg/dL Glucose (74-99) mg/dL Plasma Lactic Acid Hector 4.0 H* (0.7-2.0) mmol/L Calcium (8.4-10.2) mg/dL AST (17-59) U/L ALT (4-49) U/L Troponin I 0.096 H* (0.000-0.034) ng/mL Albumin (3.5-5.0) g/dL SARS-CoV-2 (PCR) Detected A (Not Detectd) 10/04/21 10/04/21 10/04/21 Range/Units 15:26 19:31 21:54 WBC (3.8-10.6) k/uL Plt Count (150-450) k/uL Neutrophils # (1.3-7.7) k/uL Lymphocytes # (1.0-4.8) k/uL APTT 76.2 H (22.0-30.0) sec D-Dimer (<0.60) mg/L FEU Sodium (137-145) mmol/L Carbon Dioxide (22-30) mmol/L BUN (9-20) mg/dL Creatinine (0.66-1.25) mg/dL Glucose (74-99) mg/dL Plasma Lactic Acid Hector (0.7-2.0) mmol/L Calcium (8.4-10.2) mg/dL AST (17-59) U/L ALT (4-49) U/L Troponin I 0.197 H* 0.177 H* (0.000-0.034) ng/mL Albumin (3.5-5.0) g/dL SARS-CoV-2 (PCR) (Not Detectd) 10/05/21 Range/Units 05:42 WBC (3.8-10.6) k/uL Plt Count (150-450) k/uL Neutrophils # (1.3-7.7) k/uL Lymphocytes # (1.0-4.8) k/uL APTT 80.5 H (22.0-30.0) sec D-Dimer (<0.60) mg/L FEU Sodium (137-145) mmol/L Carbon Dioxide (22-30) mmol/L BUN (9-20) mg/dL Creatinine (0.66-1.25) mg/dL Glucose (74-99) mg/dL Plasma Lactic Acid Hector (0.7-2.0) mmol/L Calcium (8.4-10.2) mg/dL AST (17-59) U/L ALT (4-49) U/L Troponin I (0.000-0.034) ng/mL Albumin (3.5-5.0) g/dL SARS-CoV-2 (PCR) (Not Detectd) Thrombosis Risk Factor Assmnt - DVT/VTE Prophylaxis DVT/VTE Prophylaxis: Pharmacologic Prophylaxis ordered - Choose All That Apply Any of the Below Risk Factors Present?: No Other Risk Factors: Yes Each Risk Factor Represents 2 Points: Age 61-74 years Other congenital or acquired thrombophilia - If yes, enter type in comment: No Thrombosis Risk Factor Assessment Total Risk Factor Score: 2 Thrombosis Risk Factor Assessment Level: Low Risk Assessment and Plan Assessment: Acute hypoxic respiratory failure secondary to COVID-19 pneumonia. Patient is not vaccinated. Currently requiring BiPAP. Elevated inflammatory markers Elevated troponin level likely demand mismatch Lactic acidosis 4.0 on admission improved no Acute kidney injury likely prerenal. Possible ATN due to infection. Elevated D-dimer level. CTA could not be done due to acute kidney injury. Bilateral lower extremity Duplex scan was ordered. Hypovolemic hyponatremia Ongoing nicotine addiction DVT prophylaxis. Plan: Patient was started on Decadron and multivitamins and heparin drip. Patient was given IV fluid bolus in the ER. Cardiology and pulmonary was consulted. Patient was seen by cardiology and 2D echocardiogram was ordered. Heparin drip has been discontinued and patient was started on Lovenox subcu. Continue with symptomatic management. GI and DVT prophylaxis. Prognosis is guarded at this time. Time with Patient: Greater than 30
[2021-10-06 06:03] LABS: Glucose,Whole Blood 100 mg/dL (75-99)
[2021-10-06] MEDS: CHOLECALCIFEROL 25 MCG (1000 IU) TABLET PO SCH (08:29)
[2021-10-06] MEDS: ASPIRIN 81 MG PO SCH (08:29)
[2021-10-06] MEDS: ZINC SULFATE 220 MG CAP PO SCH (08:29)
[2021-10-06] MEDS: ASCORBIC ACID 500 MG TAB PO SCH (08:29)
[2021-10-06] MEDS: METOPROLOL TARTRATE 12.5 MG TAB PO SCH ×2 (08:30→21:06)
[2021-10-06] MEDS: DEXAMETHASONE SOD PHOSPHATE 10 MG/ML 1 ML VIAL IVP SCH (08:30)
[2021-10-06] MEDS: guaiFENesin 600 MG TABLET.ER PO SCH ×2 (08:30→21:06)
[2021-10-06] MEDS: ENOXAPARIN 40 MG/0.4 ML SYRINGE SQ SCH (08:30)
--- NOTE | 2021-10-06 09:24 | XR ---
EXAMINATION TYPE: XR chest 1V portable DATE OF EXAM: 10/06/2021 COMPARISON: 10/04/2021 HISTORY: Cough TECHNIQUE: Single frontal view of the chest is obtained. FINDINGS: Bilateral interstitial and alveolar infiltrates are stable. Tiny left pleural effusion. He art size normal. Prominence of the aortic arch shadow. Atherosclerotic change aorta. Diffuse osteopen ia and arthropathy of the shoulders. Underlying COPD suspected. IMPRESSION: Diffuse bilateral infiltrate stable.
[2021-10-06 09:47] LABS: Basophils # (A) 0.1 k/uL (0-0.2); Basophils % (A) 0 %; Eosinophils % (A) 0 %; HCT 45.9 % (39.0-53.0); HGB 15.6 gm/dL (13.0-17.5); Lymphocytes # (A) 1.1 k/uL (1.0-4.8); Lymphocytes % (A) 7 %; MCH 30.8 pg (25.0-35.0); MCV 90.4 fL (80.0-100.0); Mean Platelet Volume 8.6; Monocytes # (A) 0.3 k/uL (0-1.0); Monocytes % (A) 2 %; Neutrophils # (A) 14.2 k/uL (1.3-7.7); Neutrophils % (A) 89 %; Platelet Count 191 k/uL (150-450); RBC 5.07 m/uL (4.30-5.90); RDW 14.3 % (11.5-15.5); WBC 15.9 k/uL (3.8-10.6)
[2021-10-06 10:06] LABS: C Reactive Protein 8.8 mg/dL (<1.0)
[2021-10-06 10:07] LABS: Calcium 8.2 mg/dL (8.4-10.2); Potassium 4.3 mmol/L (3.5-5.1); Total Bilirubin 0.7 mg/dL (0.2-1.3); Total Protein 6.7 g/dL (6.3-8.2)
--- NOTE | 2021-10-06 10:51 | P.PN ---
Subjective Progress Note Date: 10/06/21 CHIEF COMPLAINT: Abnormal troponins HISTORY OF PRESENT ILLNESS: This is a 71-year-old male with a past medical history significant for nicotine dependence. Patient does not follow with a perfect binder feeder offbearer. We have been asked to see the patient in consultation for abnormal troponins. Patient presented to the hospital with a chief complaint of shortness of breath. The patient was found to be positive for Covid. Patient did not receive his vaccination. Patient was hypoxic upon presentation to the hospital with an oxygen saturation in the 80s. Patient was found to have abnormal troponins of 0.096. 0.197. 0.177. He was started on IV heparin. The patient was initially on a nonrebreather mask. He is currently on a BiPAP. The patient has no complaints of chest pain or pressure. Blood pressure 116/73. DIAGNOSTICS: EKG reveals sinus mechanism with nonspecific ST-T wave changes Chest xray course and groundglass infiltrates throughout both lung prado right greater than left compatible with COVID-19 pneumonia. Laboratory data: WBC 13.6. Hemoglobin 15.6. Platelet count 161. D-dimer 3.98. Sodium 136. Potassium 4.0. BUN 39. Creatinine 1.83. Lactic acid 1.1. BNP 999. Troponin 0.096. 0.197. 0.177. Current home cardiac medications include none 10/06/2021 Patient remains on the cardiac stepdown unit. Echocardiogram performed revealed ejection fraction 55-60%, mild mitral regurgitation, [id number] tricuspid regurgitation, and pulmonary hypertension. The patient remains on a BiPAP with an FiO2 of 100%. Per nursing the patient quickly desaturates when BiPAP is removed. He has no complains of chest pain or pressure. Blood pressure 129/86. Telemetry reveals sinus mechanism with a heart rate in the 80s. PHYSICAL EXAM: Thorough physical exam not completed secondary to limited evaluation/examination due to Covid19 ASSESSMENT: Shortness of breath Covid 19 Acute hypoxic respiratory failure Abnormal troponins, not suggestive of acute coronary syndrome, likely secondary to type II NH secondary to oxygen supply and demand mismatch due to significant hypoxia Acute kidney injury, baseline unknown, creatinine 1.83 on admission Elevated d-dimer PLAN: Continue current cardiac medications No further inpatient recommendations from a cardiac standpoint We will sign off. Please reconsult if needed. Nurse practitioner note has been reviewed by physician. Signing provider agrees with the documented findings, assessment, and plan of care. Objective - Vital Signs Vital signs: Vital Signs Temp 98.2 F 10/06/21 08:00 Pulse 86 10/06/21 08:00 Resp 32 H 10/06/21 08:00 BP 129/86 10/06/21 08:00 Pulse Ox 93 L 10/06/21 08:00 Intake & Output 10/05/21 10/06/21 10/06/21 18:59 06:59 18:59 Intake Total 360 120 Output Total 250 600 Balance 110 -480 Weight 51.5 kg 52.5 kg Intake: Oral 360 120 Output: Urine 250 600 Other: Voiding Method Urinal # Voids 1 # Bowel Movements 1 - Labs CBC & Chem 7: 10/06/21 08:52 10/06/21 08:52 Labs: Abnormal Lab Results - Last 24 Hours (Table) 10/04/21 10/05/21 10/05/21 Range/Units 13:15 11:02 11:02 WBC 13.6 H (3.8-10.6) k/uL Neutrophils # 12.0 H (1.3-7.7) k/uL APTT 56.9 H (22.0-30.0) sec D-Dimer (<0.60) mg/L FEU Chloride (98-107) mmol/L Carbon Dioxide (22-30) mmol/L BUN (9-20) mg/dL Creatinine (0.66-1.25) mg/dL Glucose (74-99) mg/dL POC Glucose (mg/dL) (75-99) mg/dL Calcium (8.4-10.2) mg/dL AST (17-59) U/L ALT (4-49) U/L Lactate Dehydrogenase (313-618) U/L C-Reactive Protein (<1.0) mg/dL Albumin (3.5-5.0) g/dL HDL Cholesterol 33.30 L (40.00-60.00) mg/dL 10/05/21 10/05/21 10/05/21 Range/Units 11:02 13:23 13:23 WBC (3.8-10.6) k/uL Neutrophils # (1.3-7.7) k/uL APTT (22.0-30.0) sec D-Dimer 1.81 H (<0.60) mg/L FEU Chloride 109 H (98-107) mmol/L Carbon Dioxide 19 L (22-30) mmol/L BUN 58 H (9-20) mg/dL Creatinine 2.34 H (0.66-1.25) mg/dL Glucose 118 H (74-99) mg/dL POC Glucose (mg/dL) (75-99) mg/dL Calcium 8.0 L (8.4-10.2) mg/dL AST (17-59) U/L ALT (4-49) U/L Lactate Dehydrogenase 2013 H 1964 H (313-618) U/L C-Reactive Protein 20.8 H (<1.0) mg/dL Albumin (3.5-5.0) g/dL HDL Cholesterol (40.00-60.00) mg/dL 10/05/21 10/06/21 10/06/21 Range/Units 20:00 06:01 08:52 WBC (3.8-10.6) k/uL Neutrophils # (1.3-7.7) k/uL APTT (22.0-30.0) sec D-Dimer 4.99 H (<0.60) mg/L FEU Chloride (98-107) mmol/L Carbon Dioxide (22-30) mmol/L BUN (9-20) mg/dL Creatinine (0.66-1.25) mg/dL Glucose (74-99) mg/dL POC Glucose (mg/dL) 132 H 100 H (75-99) mg/dL Calcium (8.4-10.2) mg/dL AST (17-59) U/L ALT (4-49) U/L Lactate Dehydrogenase (313-618) U/L C-Reactive Protein (<1.0) mg/dL Albumin (3.5-5.0) g/dL HDL Cholesterol (40.00-60.00) mg/dL 10/06/21 10/06/21 10/06/21 Range/Units 08:52 08:52 08:52 WBC 15.9 H (3.8-10.6) k/uL Neutrophils # 14.2 H (1.3-7.7) k/uL APTT (22.0-30.0) sec D-Dimer (<0.60) mg/L FEU Chloride 111 H (98-107) mmol/L Carbon Dioxide (22-30) mmol/L BUN 55 H (9-20) mg/dL Creatinine 1.76 H (0.66-1.25) mg/dL Glucose (74-99) mg/dL POC Glucose (mg/dL) (75-99) mg/dL Calcium 8.2 L (8.4-10.2) mg/dL AST 86 H (17-59) U/L ALT 50 H (4-49) U/L Lactate Dehydrogenase 2032 H (313-618) U/L C-Reactive Protein 8.8 H (<1.0) mg/dL Albumin 3.0 L (3.5-5.0) g/dL HDL Cholesterol (40.00-60.00) mg/dL
[2021-10-06] MEDS: BARICITINIB 1 MG TABLET PO SCH (13:49)
--- NOTE | 2021-10-06 14:05 | P.PN ---
Subjective Progress Note Date: 10/06/21 this is a 71-year-old male patient with a history of chronic tobacco dependence otherwise no significant past medical history. Approximately 1 week ago he developed increasing shortness of breath, cough and congestion. He admitted to some confusion, weakness and diarrhea. He is not vaccinated against the COVID- 19 virus and is found to be positive now. the x-ray does reveal coursing groundglass infiltrates throughout bilateral lung prado compatible with COVID- 19 pneumonia. He is currently requiring BiPAP 10/09 in the 100% FiO2 to maintain O2 saturation at 90%. white count 13.6. Hemoglobin 15.6. Platelet count 161. D-dimer 3.98. Sodium 138. Potassium 4.2. Bicarb 19. Creatinine 2.34. Glu cose 118. LDH 2013. ProBNP 999. Troponins 0.096, 0.197, 0.177. proBNP 999. He was initiated on a heparin drip. Echocardiogram revealed preserved left ventricle systolic function with ejection fraction 55-60%. Moderate pulmonary hypertension. No significant valvular abnormalities. He was started on Decadron and a vitamin supplements. On today's evaluation of 10/06/2021, the patient's breathing is noted to be more labored. He is strictly BiPAP dependent. His been on BiPAP since yesterday a fternoon. He is currently at a pressure of 12 was 6 cm of water with an FiO2 of 100%. His breathing is labored and the patient's is generating a tidal volume of around 1 L and his respiratory rate currently is around 30-40,000 minutes. His red ventilation as high as an order of 40 L per minute. Note that at time of his initial evaluation, the patient was started on a combination of Decadron and Baricitinib. Nevertheless, his pro-calcitonin level is elevated. Chest x- ray showing a patchy infiltration of the right upper lobe and today's chest x- ray shows some interval worsening of the left lung infiltration. His current white cell count of 15.9. His d-dimer is at 4.99, his creatinine is down to 1.76 and the BUN is a 55 and the patient is currently on IV fluids with normal saline at the rate of 20 mL an hour and this fluid rate will be increased up to 75. Meanwhile, his LDH level is 2031, CRP level is at 8.8, he does have a mild transaminitis with an AST of 86, ALT of 50, alkaline phosphatase of 70. Pro- calcitonin level is at 2.86. Doppler of the lower extremity was negative for DVTs. Objective - Vital Signs Vital signs: Vital Signs Temp 98.4 F 10/06/21 11:54 Pulse 88 10/06/21 11:54 Resp 33 H 10/06/21 11:54 BP 149/80 10/06/21 11:54 Pulse Ox 91 L 10/06/21 11:54 Intake & Output 10/05/21 10/06/21 10/06/21 18:59 06:59 18:59 Intake Total 360 120 Output Total 250 600 Balance 110 -480 Weight 51.5 kg 52.5 kg Intake: Oral 360 120 Output: Urine 250 600 Other: Voiding Method Urinal # Voids 1 # Bowel Movements 1 - Exam GENERAL EXAM: Alert, pleasant 71-year-old gentleman, on BiPAP 12/6 and 100% FiO2 with O2 saturation 90%, and mild respiratory distress. HEAD: Normocephalic. EYES: Normal reaction of pupils, equal size. NOSE: Clear with pink turbinates. THROAT: No erythema or exudates. NECK: No masses, no JVD. CHEST: No chest wall deformity. LUNGS: Equal air entry with coarse crackles in the bilateral bases. CVS: S1 and S2 normal with no audible murmur, regular rhythm. ABDOMEN: No hepatosplenomegaly, normal bowel sounds, no guarding or rigidity. SPINE: No scoliosis or deformity SKIN: No rashes CENTRAL NERVOUS SYSTEM: No focal deficits, tone is normal in all 4 extremities. EXTREMITIES: There is no peripheral edema. No clubbing, no cyanosis. Peripheral pulses are intact. - Labs CBC & Chem 7: 10/06/21 08:52 10/06/21 08:52 Labs: Abnormal Lab Results - Last 24 Hours (Table) 10/04/21 10/05/21 10/05/21 Range/Units 13:15 13:23 13:23 WBC (3.8-10.6) k/uL Neutrophils # (1.3-7.7) k/uL D-Dimer (<0.60) mg/L FEU Chloride (98-107) mmol/L BUN (9-20) mg/dL Creatinine (0.66-1.25) mg/dL POC Glucose (mg/dL) (75-99) mg/dL Calcium (8.4-10.2) mg/dL AST (17-59) U/L ALT (4-49) U/L Lactate Dehydrogenase 1964 H (313-618) U/L C-Reactive Protein (<1.0) mg/dL Albumin (3.5-5.0) g/dL HDL Cholesterol 33.30 L (40.00-60.00) mg/dL Procalcitonin 2.86 H (0.02-0.09) ng/mL 10/05/21 10/06/21 10/06/21 Range/Units 20:00 06:01 08:52 WBC (3.8-10.6) k/uL Neutrophils # (1.3-7.7) k/uL D-Dimer 4.99 H (<0.60) mg/L FEU Chloride (98-107) mmol/L BUN (9-20) mg/dL Creatinine (0.66-1.25) mg/dL POC Glucose (mg/dL) 132 H 100 H (75-99) mg/dL Calcium (8.4-10.2) mg/dL AST (17-59) U/L ALT (4-49) U/L Lactate Dehydrogenase (313-618) U/L C-Reactive Protein (<1.0) mg/dL Albumin (3.5-5.0) g/dL HDL Cholesterol (40.00-60.00) mg/dL Procalcitonin (0.02-0.09) ng/mL 10/06/21 10/06/21 10/06/21 Range/Units 08:52 08:52 08:52 WBC 15.9 H (3.8-10.6) k/uL Neutrophils # 14.2 H (1.3-7.7) k/uL D-Dimer (<0.60) mg/L FEU Chloride 111 H (98-107) mmol/L BUN 55 H (9-20) mg/dL Creatinine 1.76 H (0.66-1.25) mg/dL POC Glucose (mg/dL) (75-99) mg/dL Calcium 8.2 L (8.4-10.2) mg/dL AST 86 H (17-59) U/L ALT 50 H (4-49) U/L Lactate Dehydrogenase 2032 H (313-618) U/L C-Reactive Protein 8.8 H (<1.0) mg/dL Albumin 3.0 L (3.5-5.0) g/dL HDL Cholesterol (40.00-60.00) mg/dL Procalcitonin (0.02-0.09) ng/mL Assessment and Plan Plan: 1 Acute hypoxemic respiratory failure secondary to acute COVID-19 pneumonia. Not vaccinated. Currently requiring BiPAP support 10/09 and 100% FiO2 to [place] in O2 saturation at 90%. The patient was seen in consultation yesterday. He was started on BiPAP. Overnight, he was briefly on high flow oxygen which she tolerated for a short period of time and sacral he desaturated and he was placed back on BiPAP at the same setting. His most recent saturation is ranging between 85-90%. He was started on a combination of Decadron by distended. Nevertheless, his protest on level came back elevated and the patient has some leukocytosis and I think it's reasonable to stop the Baricitinib and cover the patient with broad-spectrum antibiotics. There may be a patient of superinfection as the patient has a consolidation of the right upper lobe. In addition to that he has diffuse bilateral pulmonary infiltration left worse compared to yesterday. His LDH level is 2031 which is higher compared to yesterday. D-dimer is at 4.9. Doppler of the lower extremities were negative. 2 Elevated inflammatory markers secondary to above 3 Chronic tobacco dependence 4 Elevated troponins suspect secondary to an oxygen supply and demand mismatch, Plan CAT scan transfer this patient to the intensive care unit Continue BiPAP for now at the same pressure settings and monitor the oxygen saturation. Continue Decadron. Stop the Baricitinib for now and order cultures including blood cultures. The patient on a combination of Rocephin and Zithromax. Continue Lovenox 40 mg subcu for DVT prophylaxis Doppler of the lower activity has been negative. Inserted Cordova catheter and send urinalysis and urine cultures Check lactic acid levels Monitor pro-calcitonin level within next 24-48 hours High likelihood for further decompensation, requiring intubation mechanical ventilation for that reason I think it's reasonable to transfer this patient to the intensive care unit.
[2021-10-06 15:07] LABS: Appearance,Urine Cloudy (Clear); Bacteria,Urine Moderate /hpf; Bilirubin,Urine Negative (Negative); Blood,Urine Small (Negative); Budding Yeast,Urine Few /hpf; Color,Urine Yellow; Glucose,Urine (UA) Negative (Negative); Hyaline Casts,Urine 11 /lpf (0-2); Ketones,Urine Negative (Negative); Leukocyte Esterase,Urine Negative (Negative); Mucus,Urine Rare /hpf; Nitrite,Urine Negative (Negative); PH, Urine 5.5 (5.0-8.0); Protein,Urine 2+ (Negative); RBC,Urine 3 /hpf (0-5); Specific Gravity,Urine 1.024 (1.001-1.035); Squamous Epithelial Cell,Urine 1 /hpf (0-4); Urobilinogen,Urine <2.0 mg/dL (<2.0); WBC,Urine 7 /hpf (0-5)
[2021-10-06] MEDS: AZITHROMYCIN 500 MG in SODIUM CHLORIDE 0.9% 250 ML IVPB SCH (15:34)
[2021-10-06 17:35] LABS: Glucose,Whole Blood 94 mg/dL (75-99)
[2021-10-06] MEDS: DEXMEDETOMIDINE/0.9% NACL(PMX) 400 MCG in EMPTY BAG 1 BAG IV SCH (19:15)
--- NOTE | 2021-10-06 21:23 | P.PN ---
Subjective Progress Note Date: 10/06/21 Principal diagnosis: Acute hypoxic respiratory failure secondary to COVID-19 pneumonia Patient is a 71-year-old male without significant past medical history presents to ER with complaints of shortness of breath cough and congestion. Patient has been having exertional dyspnea as well. No complaints of chest pain. No nausea vomiting. He has been having symptoms for the past 4 days. Denies any recent travel or sick contacts. On admission patient was tested positive for COVID-19 infection. Chest x-ray showed there are coarsened groundglass infiltrates throughout both lung prado right greater than left compatible with COVID-19 pneumonia. EKG deepthi wed sinus tachycardia with premature supraventricular complexes. Laboratory data showed WBC 11.3 hemoglobin 15.8 and platelets 136 D-dimer is 3.98 Sodium 136 potassium 4.0 chloride 104 BUN 39 and creatinine 1.83 Lactic acid 4.0 AST 140 ALT 54 Troponin 0 0.096, 0.197 and 0.177 COVID-19 PCR positive. On admission patient was febrile with T-max 101.7 heart rate 110 respiration 32 and pulse ox 85% on 15 L oxygen via nonrebreather. Patient did require BiPAP overnight. 10/06/2021 Patient is in the [facility] care unit. Remains on BiPAP and patient is breathing is getting worse and using accessory muscles and unable to tolerate BiPAP. Patient was tachypneic and tachycardic.. Currently being continued on Decadron and baricitinib. Patient is afebrile. Chest x-ray showed diffuse bilateral infiltrates stable. Bilateral repeat duplex scan is negative for DVT. Laboratory data showed WBC went up to 15.9 hemoglobin 15.6 and neutrophils 14.2 D-dimer level went up to 4.99 Sodium 142 potassium 4.3 chloride 101 bicarb is 22 BUN 55 and creatinine 1.76 AST 86 ALT 50 alk phos 76 LDH 2031. Pulmonary is following and is being transferred to MICU. Patient was started on antibiotics in the azithromycin and ceftriaxone. Current medications reviewed. Objective - Vital Signs Vital signs: Vital Signs Temp 99.5 F 10/06/21 17:40 Pulse 100 10/06/21 19:00 Resp 41 H 10/06/21 19:00 BP 144/94 10/06/21 19:00 Pulse Ox 85 L 10/06/21 19:00 Intake & Output 10/06/21 10/06/21 10/07/21 06:59 18:59 06:59 Intake Total 120 20 32.295 Output Total 600 585 30 Balance -480 -565 2.295 Weight 52.5 kg Intake: IV 20 20 0.9NS 20 20 Intake, IV Titration 12.295 Amount Dexmedetomidine/0.9% NaCl 12.295 (Pmx) 400 mcg In Empty Bag 1 bag @ 0.2 MCG/KG/HR 2.625 mls/hr IV .Q24H [facility] Rx#:[id number] Oral 120 Output: Urine 600 585 30 Other: Voiding Method Urinal Indwelling Catheter # Bowel Movements 1 - Exam PHYSICAL EXAMINATION: Patient is lying in the bed appears to be in acute distress, awake alert and oriented.. HEENT: Normocephalic. Neck is supple. Pupils reactive. Nostrils clear. Oral cavity is moist. Neck reveals no JVD, carotid bruits, or thyromegaly. CHEST EXAMINATION: Trachea is central. Symmetrical expansion. Scattered coarse sounds. labored breathing. Using accessory muscles. CARDIAC: Normal S1, S2 with no gallops. No murmurs ABDOMEN: Soft. Bowel sounds normal. No organomegaly. No abdominal bruits. Extremities: reveal no edema. No clubbing or cyanosis Neurologically awake, alert, oriented x3 with well-coordinated movements. No focal deficits noted Skin: No rash or skin lesions. Psychiatric: Cooperative. Musculoskeletal: No joint swelling or deformity. Normal range of motion. - Labs CBC & Chem 7: 10/06/21 08:52 10/06/21 08:52 Labs: Abnormal Lab Results - Last 24 Hours (Table) 10/05/21 10/06/21 10/06/21 Range/Units 13:23 06:01 08:52 WBC (3.8-10.6) k/uL Neutrophils # (1.3-7.7) k/uL D-Dimer 4.99 H (<0.60) mg/L FEU Chloride (98-107) mmol/L BUN (9-20) mg/dL Creatinine (0.66-1.25) mg/dL POC Glucose (mg/dL) 100 H (75-99) mg/dL Calcium (8.4-10.2) mg/dL AST (17-59) U/L ALT (4-49) U/L Lactate Dehydrogenase (313-618) U/L C-Reactive Protein (<1.0) mg/dL Albumin (3.5-5.0) g/dL Procalcitonin 2.86 H (0.02-0.09) ng/mL Urine Protein (Negative) Urine Blood (Negative) Urine WBC (0-5) /hpf Urine Bacteria (None) /hpf Hyaline Casts (0-2) /lpf Urine Mucus (None) /hpf Urine Yeast (Budding) (None) /hpf 10/06/21 10/06/21 10/06/21 Range/Units 08:52 08:52 08:52 WBC 15.9 H (3.8-10.6) k/uL Neutrophils # 14.2 H (1.3-7.7) k/uL D-Dimer (<0.60) mg/L FEU Chloride 111 H (98-107) mmol/L BUN 55 H (9-20) mg/dL Creatinine 1.76 H (0.66-1.25) mg/dL POC Glucose (mg/dL) (75-99) mg/dL Calcium 8.2 L (8.4-10.2) mg/dL AST 86 H (17-59) U/L ALT 50 H (4-49) U/L Lactate Dehydrogenase 2032 H (313-618) U/L C-Reactive Protein 8.8 H (<1.0) mg/dL Albumin 3.0 L (3.5-5.0) g/dL Procalcitonin (0.02-0.09) ng/mL Urine Protein (Negative) Urine Blood (Negative) Urine WBC (0-5) /hpf Urine Bacteria (None) /hpf Hyaline Casts (0-2) /lpf Urine Mucus (None) /hpf Urine Yeast (Budding) (None) /hpf 10/06/21 Range/Units 14:50 WBC (3.8-10.6) k/uL Neutrophils # (1.3-7.7) k/uL D-Dimer (<0.60) mg/L FEU Chloride (98-107) mmol/L BUN (9-20) mg/dL Creatinine (0.66-1.25) mg/dL POC Glucose (mg/dL) (75-99) mg/dL Calcium (8.4-10.2) mg/dL AST (17-59) U/L ALT (4-49) U/L Lactate Dehydrogenase (313-618) U/L C-Reactive Protein (<1.0) mg/dL Albumin (3.5-5.0) g/dL Procalcitonin (0.02-0.09) ng/mL Urine Protein 2+ H (Negative) Urine Blood Small H (Negative) Urine WBC 7 H (0-5) /hpf Urine Bacteria Moderate H (None) /hpf Hyaline Casts 11 H (0-2) /lpf Urine Mucus Rare H (None) /hpf Urine Yeast (Budding) Few H (None) /hpf Assessment and Plan Assessment: Acute hypoxic respiratory failure secondary to COVID-19 pneumonia. Patient is not vaccinated. Currently requiring BiPAP.Breathing seems more labored. Possible underlying bacterial pneumonia with elevated procalcitonin level. Elevated inflammatory markers Elevated troponin level likely demand mismatch Lactic acidosis 4.0 on admission improved no Acute kidney injury likely prerenal. Possible ATN due to infection. Elevated D-dimer level. CTA could not be done due to acute kidney injury. Bilateral lower extremity Duplex scan was ordered. Hypovolemic hyponatremia Ongoing nicotine addiction DVT prophylaxis. Plan: Patient was started on Decadron and multivitamins and lovenox. Baricitinib was added. Cardiology and pulmonary is on board. Patient was seen by cardiology and 2D echocardiogram was ordered. Heparin drip has been discontinued and patient was started on Lovenox subcu. Continue with symptomatic management. GI and DVT prophylaxis. Prognosis is guarded at this time. Time with Patient: Greater than 30
[2021-10-07] MEDS: DEXMEDETOMIDINE/0.9% NACL(PMX) 400 MCG in EMPTY BAG 1 BAG IV SCH ×3 (03:54→16:25)
[2021-10-07 05:06] LABS: Basophils # (A) 0.1 k/uL (0-0.2); Basophils % (A) 1 %; Eosinophils % (A) 0 %; HCT 49.2 % (39.0-53.0); HGB 16.4 gm/dL (13.0-17.5); Lymphocytes # (A) 0.8 k/uL (1.0-4.8); Lymphocytes % (A) 6 %; MCH 30.6 pg (25.0-35.0); MCHC 33.2 g/dL (31.0-37.0); Mean Platelet Volume 8.4; Monocytes # (A) 0.3 k/uL (0-1.0); Monocytes % (A) 2 %; Neutrophils % (A) 89 %; Platelet Count 212 k/uL (150-450); RBC 5.35 m/uL (4.30-5.90); RDW 14.7 % (11.5-15.5); WBC 12.4 k/uL (3.8-10.6)
[2021-10-07 05:25] LABS: Albumin 3.1 g/dL (3.5-5.0); Calcium 8.6 mg/dL (8.4-10.2); Total Bilirubin 0.8 mg/dL (0.2-1.3)
--- NOTE | 2021-10-07 07:26 | XR ---
EXAMINATION TYPE: XR chest 1V portable DATE OF EXAM: 10/07/2021 COMPARISON: 10/06/2021 HISTORY: Shortness of breath TECHNIQUE: Single frontal view of the chest is obtained. FINDINGS: There are marked diffuse interstitial and small airspace infiltrates bilaterally unchanged compared to previous. Heart size is normal. The osseous structures are intact. There is no pneumothorax or large pleural ef fusion. IMPRESSION: No change in the interstitial and alveolar infiltrates.
[2021-10-07] MEDS: DEXAMETHASONE SOD PHOSPHATE 10 MG/ML 1 ML VIAL IVP SCH (08:13)
[2021-10-07] MEDS: ASCORBIC ACID 500 MG TAB PO SCH (08:13)
[2021-10-07] MEDS: CHOLECALCIFEROL 25 MCG (1000 IU) TABLET PO SCH (08:13)
[2021-10-07] MEDS: ZINC SULFATE 220 MG CAP PO SCH (08:13)
[2021-10-07] MEDS: guaiFENesin 600 MG TABLET.ER PO SCH ×2 (08:13→22:36)
[2021-10-07] MEDS: ASPIRIN 81 MG PO SCH (08:13)
[2021-10-07] MEDS: ENOXAPARIN 40 MG/0.4 ML SYRINGE SQ SCH (08:13)
[2021-10-07] MEDS: METOPROLOL TARTRATE 12.5 MG TAB PO SCH ×2 (08:14→22:36)
--- NOTE | 2021-10-07 08:33 | P.PN ---
Subjective Progress Note Date: 10/07/21 this is a 71-year-old male patient with a history of chronic tobacco dependence otherwise no significant past medical history. Approximately 1 week ago he developed increasing shortness of breath, cough and congestion. He admitted to some confusion, weakness and diarrhea. He is not vaccinated against the COVID- 19 virus and is found to be positive now. the x-ray does reveal coursing groundglass infiltrates throughout bilateral lung prado compatible with COVID- 19 pneumonia. He is currently requiring BiPAP 10/09 in the 100% FiO2 to maintain O2 saturation at 90%. white count 13.6. Hemoglobin 15.6. Platelet count 161. D-dimer 3.98. Sodium 138. Potassium 4.2. Bicarb 19. Creatinine 2.34. Glu cose 118. LDH 2013. ProBNP 999. Troponins 0.096, 0.197, 0.177. proBNP 999. He was initiated on a heparin drip. Echocardiogram revealed preserved left ventricle systolic function with ejection fraction 55-60%. Moderate pulmonary hypertension. No significant valvular abnormalities. He was started on Decadron and a vitamin supplements. On today's evaluation of 10/06/2021, the patient's breathing is noted to be more labored. He is strictly BiPAP dependent. His been on BiPAP since yesterday a fternoon. He is currently at a pressure of 12 was 6 cm of water with an FiO2 of 100%. His breathing is labored and the patient's is generating a tidal volume of around 1 L and his respiratory rate currently is around 30-40,000 minutes. His red ventilation as high as an order of 40 L per minute. Note that at time of his initial evaluation, the patient was started on a combination of Decadron and Baricitinib. Nevertheless, his pro-calcitonin level is elevated. Chest x- ray showing a patchy infiltration of the right upper lobe and today's chest x- ray shows some interval worsening of the left lung infiltration. His current white cell count of 15.9. His d-dimer is at 4.99, his creatinine is down to 1.76 and the BUN is a 55 and the patient is currently on IV fluids with normal saline at the rate of 20 mL an hour and this fluid rate will be increased up to 75. Meanwhile, his LDH level is 2031, CRP level is at 8.8, he does have a mild transaminitis with an AST of 86, ALT of 50, alkaline phosphatase of 70. Pro- calcitonin level is at 2.86. Doppler of the lower extremity was negative for DVTs. 10/07/2021, the patient is being seen in follow-up in the intensive care unit. The patient got transferred to the ICU yesterday because of obvious concern of further respiratory compromise, COVID 19 related pneumonia and possible superinfection. Overnight, the patient was kept on a BiPAP and the patient is still on a BiPAP at a pressure of 12/6 cm of water and FiO2 is currently at 100 %. The chest x-ray was repeated today and the patient has still bilateral pulmonary infiltrates and there is some interval improvement in the right upper lobe consolidation. The patient is currently tolerating the BiPAP. Current pulse ox is 90%. The patient is generating a tidal volume of above 1 L. The patient's respiratory rate ranges between 30 and 35. He has a minute ventilation of above 30 L. Obviously, I was also concerned about the superinfection. I saw the patient broad-spectrum antibiotics. His pro- calcitonin level was elevated. The patient was taken off the Baricitinib. The patient is currently on Decadron and he is also on a combination of Rocephin and Zithromax. He is afebrile. His white cell count is at 12.4. His creatinine is down to 1.47, his d-dimer is above 34, his LDH level from yesterday was 2031 and a CRP was 8.8, LFTs are still abnormal and the patient has some mild transaminitis. He is feeling anxious. Currently is on Precedex and the infusion is running at 1.2 mcg/kg per minute. He is complaining of some dryness in his mouth. At times he gets worked up and anxious and this cannot attribute still his oxygen desaturation. For that reason, the patient was kept on Precedex infusion. Objective - Vital Signs Vital signs: Vital Signs Temp 99.5 F 10/06/21 17:40 Pulse 54 L 10/07/21 07:00 Resp 23 10/07/21 07:00 BP 153/95 10/07/21 07:00 Pulse Ox 89 L 10/07/21 07:00 Intake & Output 10/06/21 10/07/21 10/07/21 18:59 06:59 18:59 Intake Total 20 112.731 Output Total 585 460 40 Balance -565 -347.269 -40 Intake: IV 20 20 0.9NS 20 20 Intake, IV Titration 92.731 Amount Dexmedetomidine/0.9% NaCl 92.731 (Pmx) 400 mcg In Empty Bag 1 bag @ 0.2 MCG/KG/HR 2.625 mls/hr IV .Q24H [facility] Rx#:[id number] Output: Urine 585 460 40 Other: Voiding Method Indwelling Catheter Indwelling Catheter # Bowel Movements 1 - Exam GENERAL EXAM: Alert, pleasant 71-year-old gentleman, on BiPAP 12/6 and 100% FiO2 with O2 saturation 90%, and mild respiratory distress. HEAD: Normocephalic. EYES: Normal reaction of pupils, equal size. NOSE: Clear with pink turbinates. THROAT: No erythema or exudates. NECK: No masses, no JVD. CHEST: No chest wall deformity. LUNGS: Equal air entry with coarse crackles in the bilateral bases. CVS: S1 and S2 normal with no audible murmur, regular rhythm. ABDOMEN: No hepatosplenomegaly, normal bowel sounds, no guarding or rigidity. SPINE: No scoliosis or deformity SKIN: No rashes CENTRAL NERVOUS SYSTEM: No focal deficits, tone is normal in all 4 extremities. EXTREMITIES: There is no peripheral edema. No clubbing, no cyanosis. Peripheral pulses are intact. - Labs CBC & Chem 7: 10/07/21 04:31 10/07/21 04:31 Labs: Abnormal Lab Results - Last 24 Hours (Table) 10/05/21 10/06/21 10/06/21 Range/Units 13:23 08:52 08:52 WBC (3.8-10.6) k/uL Neutrophils # (1.3-7.7) k/uL Lymphocytes # (1.0-4.8) k/uL D-Dimer 4.99 H (<0.60) mg/L FEU Sodium (137-145) mmol/L Chloride (98-107) mmol/L BUN (9-20) mg/dL Creatinine (0.66-1.25) mg/dL Glucose (74-99) mg/dL Calcium (8.4-10.2) mg/dL AST (17-59) U/L ALT (4-49) U/L Lactate Dehydrogenase 2032 H (313-618) U/L C-Reactive Protein 8.8 H (<1.0) mg/dL Albumin (3.5-5.0) g/dL Procalcitonin 2.86 H (0.02-0.09) ng/mL Urine Protein (Negative) Urine Blood (Negative) Urine WBC (0-5) /hpf Urine Bacteria (None) /hpf Hyaline Casts (0-2) /lpf Urine Mucus (None) /hpf Urine Yeast (Budding) (None) /hpf 10/06/21 10/06/21 10/06/21 Range/Units 08:52 08:52 14:50 WBC 15.9 H (3.8-10.6) k/uL Neutrophils # 14.2 H (1.3-7.7) k/uL Lymphocytes # (1.0-4.8) k/uL D-Dimer (<0.60) mg/L FEU Sodium (137-145) mmol/L Chloride 111 H (98-107) mmol/L BUN 55 H (9-20) mg/dL Creatinine 1.76 H (0.66-1.25) mg/dL Glucose (74-99) mg/dL Calcium 8.2 L (8.4-10.2) mg/dL AST 86 H (17-59) U/L ALT 50 H (4-49) U/L Lactate Dehydrogenase (313-618) U/L C-Reactive Protein (<1.0) mg/dL Albumin 3.0 L (3.5-5.0) g/dL Procalcitonin (0.02-0.09) ng/mL Urine Protein 2+ H (Negative) Urine Blood Small H (Negative) Urine WBC 7 H (0-5) /hpf Urine Bacteria Moderate H (None) /hpf Hyaline Casts 11 H (0-2) /lpf Urine Mucus Rare H (None) /hpf Urine Yeast (Budding) Few H (None) /hpf 10/07/21 10/07/21 10/07/21 Range/Units 04:31 04:31 04:31 WBC 12.4 H (3.8-10.6) k/uL Neutrophils # 11.0 H (1.3-7.7) k/uL Lymphocytes # 0.8 L (1.0-4.8) k/uL D-Dimer >34.10 H (<0.60) mg/L FEU Sodium 146 H (137-145) mmol/L Chloride 114 H (98-107) mmol/L BUN 53 H (9-20) mg/dL Creatinine 1.47 H (0.66-1.25) mg/dL Glucose 132 H (74-99) mg/dL Calcium (8.4-10.2) mg/dL AST 117 H (17-59) U/L ALT 76 H (4-49) U/L Lactate Dehydrogenase (313-618) U/L C-Reactive Protein (<1.0) mg/dL Albumin 3.1 L (3.5-5.0) g/dL Procalcitonin (0.02-0.09) ng/mL Urine Protein (Negative) Urine Blood (Negative) Urine WBC (0-5) /hpf Urine Bacteria (None) /hpf Hyaline Casts (0-2) /lpf Urine Mucus (None) /hpf Urine Yeast (Budding) (None) /hpf Assessment and Plan Plan: 1 Acute hypoxemic respiratory failure secondary to acute COVID-19 pneumonia. Not vaccinated. Currently requiring BiPAP support 10/09 and 100% FiO2 to maintain O2 saturation at 90%. The patient was seen in consultation yesterday. He was started on BiPAP. Overnight, he was briefly on high flow oxygen which she tolerated for a short period of time and sacral he desaturated and he was placed back on BiPAP at the same setting. His most recent saturation is ranging between 85-90%. He was started on a combination of Decadron by distended. Nevertheless, his protest on level came back elevated and the patient has some leukocytosis and I think it's reasonable to stop the Baricitinib and cover the patient with broad-spectrum antibiotics. There may be a patient of superi nfection as the patient has a consolidation of the right upper lobe. In addition to that he has diffuse bilateral pulmonary infiltration left worse compared to yesterday. His LDH level is 2031 which is higher compared to yesterday. D-dimer is at 4.9. Doppler of the lower extremities were negative. This morning, the patient is in the intensive care unit. He is on a combination of Decadron, Rocephin and Zithromax. The chest x-ray is showing diffuse bilateral pulmonary infiltrates and the patient is essentially BiPAP dependent. The patient was also placed on Precedex for increased anxiety and this helped him to establish synchrony with the BiPAP machine. BiPAP is running at a pressure of 12/6 with an FiO2 of 100%. He is generating a minute ventilation above 30. Keep Precedex 2 Elevated inflammatory markers secondary to above 3 Chronic tobacco dependence 4 Elevated troponins suspect secondary to an oxygen supply and demand mismatch, Plan Keep Precedex Continue BiPAP for now at the same pressure settings and monitor the oxygen saturation. CTA once more stable Continue Decadron. Stopped the Baricitinib and cultures pending. The patient is on a combination of Rocephin and Zithromax. Continue Lovenox 40 mg subcu for DVT prophylaxis Repeat Doppler of the lower extremities due to D dimer > 34 today. Monitor pro-calcitonin level within next 24-48 hours High likelihood for further decompensation, requiring intubation mechanical ventilation I did speak to both of his daughters today Time with Patient: Greater than 30
--- NOTE | 2021-10-07 09:21 | US ---
EXAMINATION TYPE: US venous doppler duplex LE DATE OF EXAM: 10/07/2021 9:06 AM COMPARISON: US dated 10/05/2021 CLINICAL HISTORY: Elevated d dimer, CoVID SIDE PERFORMED: Bilateral TECHNIQUE: The lower extremity deep venous system is examined utilizing real time linear array sonog baljit with graded compression, doppler sonography and color-flow sonography. VESSELS IMAGED: Common Femoral Vein Deep Femoral Vein Greater Saphenous Vein * Femoral Vein Popliteal Vein Small Saphenous Vein * Proximal Calf Veins (* superficial vessels) Right Leg: Negative for DVT Left Leg: Negative for DVT IMPRESSION: Grayscale, color doppler, spectral doppler imaging performed of the deep veins of the lo wer extremities. There is normal flow, compressibility, vascular waveforms. No evidence of lower ex tremity DVT
--- NOTE | 2021-10-07 11:25 | CT ---
EXAMINATION TYPE: CT angio chest DATE OF EXAM: 10/07/2021 10:56 AM COMPARISON: none HISTORY: Elevated d dimer, covid CT DLP: 377.3 mGycm Automated exposure control for dose reduction was used. CONTRAST: CTA scan of the thorax is performed with IV Contrast, patient injected with 80 mL of Isovue 370, pulm onary embolism protocol. . FINDINGS: LUNGS: There are marked diffuse bilateral interstitial infiltrates. There is focal consolidative infi ltrate left lung base. There is no pleural effusion or pneumothorax seen. The tracheobronchial violet e is patent. MEDIASTINUM: There is satisfactory enhancement of the pulmonary artery and its branches, there is no CT evidence for pulmonary embolism. There are no greater than 1 cm hilar or mediastinal lymph nodes. No pericardial effusion is seen. OTHER: No additional significant abnormality is seen. IMPRESSION: 1. No evidence of PE. 2. Diffuse bilateral interstitial infiltrates and dense opacity LLL
[2021-10-07] MEDS: AZITHROMYCIN 500 MG in SODIUM CHLORIDE 0.9% 250 ML IVPB SCH (13:41)
[2021-10-07] MEDS ORDERED: LORazepam 2 MG/ML INJ IV PRN (20:53)
[2021-10-07] MEDS ORDERED: ATROPINE OPHTH SOLN 1% 5ML BTL SUBLINGUAL PRN (20:53)
[2021-10-07] MEDS ORDERED: DRY MOUTH SPRAY 44.3 SPRAY/44.3 ML SPRAY MUCOUS MEM PRN (20:53)
[2021-10-07] MEDS ORDERED: GLYCOPYRROLATE 0.2 MG/ML 2 ML VIAL IVP PRN (20:53)
[2021-10-07] MEDS ORDERED: ARTIFICIAL TEARS-HYPROMELLOSE DROPS 15 ML BTL BOTH EYES PRN (20:53)
[2021-10-07 20:58] VITALS: TEMP 98.8
[2021-10-07] MEDS ORDERED: MORPHINE SULFATE (100 MG/2 ML) 100 MG in SODIUM CHLORIDE 0.9% 100 ML IV SCH (21:00)
[2021-10-07] MEDS ORDERED: SCOPOLAMINE 1.5MG/72HR PATCH TRANSDERM SCH (21:00)
[2021-10-07] MEDS: MORPHINE SULFATE 2 MG/ML SYRINGE IV PRN ×3 (21:04→21:58)
[2021-10-08] MEDS: MORPHINE SULFATE 2 MG/ML SYRINGE IV PRN ×3 (00:31→01:28)
[2021-10-08 02:29] VITALS: BP 130/78; PULSE 75; RESP 20
--- NOTE | 2021-10-12 12:08 | CDI ---
Documentation Clarification Form Date: 10/12/2021 11:52:33 AM From: Iwona Ruiz RN, CCDS Email: [email or web address] Admit Date: 10/04/2021 03:17:00 PM Patient Name: Raman Cagle Visit Number: [id number] Discharge Date: 10/08/2021 05:51:00 AM ATTENTION: The Clinical Documentation Specialists (CDI) and [facility] Coding Staff appreciate your assistance in clarifying documentation. Please respond to the clarification below the line at the bottom and electronically sign. The CDI & [facility] Coding staff will review the response and follow-up if needed. Please note: Queries are made part of the Legal Health Record. If you have any questions, please contact the author of this message via ITS. Dr. Saira Martinez Your patient received IV Ceftriaxone and IV Azithromycin. Please clarify what condition/diagnosis was being treated. History/Risk Factors: H&P: 71-year-old male without significant past medical history presents to ER with complaints of shortness of breath cough and congestion. Patient has been having exertional dyspnea as well. No complaints of chest pain. No nausea vomiting. He has been having symptoms for the past 4 days. Denies any recent travel or sick contacts. On admission patient was tested positive for COVID-19 infection. Clinical indicators: H&P: Chest x-ray showed there are coarsened groundglass infiltrates throughout both lung prado right greater than left compatible with COVID-19 pneumonia. EKG showed sinus tachycardia with premature supraventricular complexes. Laboratory data showed WBC 11.3 hemoglobin 15.8 and platelets 136 D- dimer is 3.98 Sodium 136 potassium 4.0 chloride 104 BUN 39 and creatinine 1.83 Lactic acid 4.0 AST 140 ALT 54 Troponin 0 0.096, 0.197 and 0.177 COVID-19 PCR positive. On admission patient was febrile with T-max 101.7 heart rate 110 respiration 32 and pulse ox 85% on 15 L oxygen via nonrebreather. Patient did require BiPAP overnight. 10/06 progress note: "Possible underlying bacterial pneumonia with elevated procalcitonin level." 10/04/21 13:04 101.7 F H 110 H 32 H 115/73 85 L Treatment: IV Ceftriaxone 1gm 10/06-10/07, IV Azithromycin 500mg 10/06-10/07, 1L 0.9NS IV bolus 10/04 What diagnosis were you treating with antibiotics? [ ] Sepsis POA [ ] Sepsis not POA [ ] Bacterial Pneumonia POA [ ] Bacterial Pneumonia not POA [ ] No additional diagnosis [ ] Other, please specify [ ] Unable to determine Sepsis POA MTDD
--- NOTE | 2021-10-12 12:59 | CDI ---
Documentation Clarification Form Date: 10/12/21 From: Savanna Barrera Phone: Admit Date: 10/04/2021 03:17:00 PM Patient Name: Raman Cagle Visit Number: [id number] Discharge Date: 10/08/2021 05:51:00 AM ATTENTION: The Clinical Documentation Specialists (CDI) and [facility] Coding Staff appreciate your assistance in clarifying documentation. Please respond to the clarification below the line at the bottom and electronically sign. The CDI & [facility] Coding staff will review the response and follow-up if needed. Please note: Queries are made part of the Legal Health Record. If you have any questions, please contact the author of this message via ITS. Dr. Saira Martinez, Pulmonary hypertension is documented in the Echo, Dr Tavares's consult, PNs 10/06 & 10/[address] Crabtree's 10/06 PN. Additional clarification is requested. History/Risk Factors: Covid pneumonia, mitral and tricuspid regurgitation, smoker, ATN, Type II NH Clinical Indicators: Echo-There is mild to moderate pulmonary hypertension. Treatment: Lovenox Can you please clarify the cause of pulmonary hypertension? [ ] Pulmonary hypertension is due to [ ] Pulmonary hypertension unknown cause [ ] Other, please specify [ ] Unable to determine Pulmonary hypertension unknown cause MTDD
== END 2021-10-08 05:51 | disposition expired | DRG 871 ==
LOC: EC 12:56 → 3SCARD 15:17 → 2SICU 10-06 17:27
PROVIDERS: ADMIT Internal Medicine; ATTEND Internal Medicine
PROC: 5A09457 Assistance with Respiratory Ventilation, 24-96 Consecutive Hours, Continuous Positive Airway Pressure (ICD-10-PCS; principal; 2021-10-04)
PROC: XW0DXM6 Introduction of Baricitinib into Mouth and Pharynx, External Approach, New Technology Group 6 (ICD-10-PCS; 2021-10-05)
DX: A41.9 Sepsis, unspecified organism (principal); U07.1 COVID-19; J12.82 Pneumonia due to coronavirus disease 2019; J96.01 Acute respiratory failure with hypoxia; N17.0 Acute kidney failure with tubular necrosis; I21.A1 Myocardial infarction type 2; E87.2 Acidosis; E87.1 Hypo-osmolality and hyponatremia; I27.20 Pulmonary hypertension, unspecified; Z66 Do not resuscitate; Z51.5 Encounter for palliative care; I49.1 Atrial premature depolarization; E86.1 Hypovolemia; I08.1 Rheumatic disorders of both mitral and tricuspid valves; R74.01 Elevation of levels of liver transaminase levels; F17.210 Nicotine dependence, cigarettes, uncomplicated; Z71.6 Tobacco abuse counseling; Z90.89 Acquired absence of other organs; Z98.890 Other specified postprocedural states; Z71.3 Dietary counseling and surveillance
CPT/HCPCS: 36415; 71045; 71275; 80048; 80053; 80061; 81001; 83605; 83615; 83735; 83880; 84145; 84484; 85025; 85379; 85610; 85730; 86140; 87040; 87086; 87636; 93005; 93306; 93970; 94660; 96361; 96374; 99291